=== PATIENT | male | born 1980 | race Caucasian/White ===

== ENCOUNTER 2018-02-26 16:53 | Emergency (ER) | payer OTHER ==
[~2018-02-26] VITALS: Ht 170.2 cm; Wt 68.0 kg
[~2018-02-26 16:53] MED LIST: FLEXERIL10 MG PO; MEDROL DOSEPAK1 PAC PO; MOTRIN 800MG T800 MG PO; PERCOCET 325 MG1 TA2 PO
[2018-02-26 17:59] LABS: ABSOLUTE BASOPHIL COUNT 0 /CUMM (0.0-0.2); ABSOLUTE EOSINOPHIL COUNT 0 /CUMM (0.0-0.7); ABSOLUTE GRANULOCYTE CT 5.5 /CUMM (1.4-6.5); ABSOLUTE LYMPH COUNT 1.6 /CUMM (1.2-3.4); ABSOLUTE MONOCYTE COUNT 0.4 /CUMM (0.10-0.60); BASOPHIL % 0.6 % (0.0-2.0); EOSINOPHIL % 0.5 % (0-5); GRANULOCYTE % 73.1 % (42.2-75.2); MEAN CORPUSCULAR HGB 30.5 PG (27.0-31.0); MEAN CORPUSCULAR VOLUME 89.7 FL (80.0-94.0); MEAN PLATELET VOLUME 7.9 FL (7.4-10.4); PLATELET COUNT 256 /CUMM (130-400); RBC DISTRIBUTION WIDTH 12.1 % (11.5-14.5); RED BLOOD CELL CT 5.69 /CUMM (4.70-6.10); WHITE BLOOD CELL COUNT 7.5 /CUMM (4.8-10.8)
[2018-02-26 20:40] VITALS: BP 120/69
--- NOTE | 2018-02-26 21:33 | ED GENERAL ADULT ---
History of Present Illness General Chief Complaint: General Adult Stated Complaint: SIB [facility] FOR EPIGASTRIC PAIN Source: patient, old records Exam Limitations: no limitations Vital Signs & Intake/Output Vital Signs & Intake/Output Vital Signs Date Time Temp Pulse Resp B/P B/P Pulse O2 O2 Flow FiO2 Mean Ox Delivery Rate 02/260 Room Air 02/27 2040 98.7 92 20 120/69 100 Room Air 02/26 1709 97.9 108 20 149/127 100 Room Air ED Intake and Output 02/27 0000 02/26 1200 Intake Total Output Total Balance Patient 150 lb Weight Weight Reported by Patient Measurement Method Allergies Coded Allergies: NO KNOWN ALLERGIES (11/19/13) Reconcile Medications CYCLOBENZAPRINE HCL (Flexeril) 10 MG TABLET 10 MG PO TID PRN SPASM Methylprednisolone. (Medrol) 4 MG TAB.DS.PK 10 MG PO DAILY INFLAMMATION USE DIRECTED OXYCODONE HCL/ACETAMINOPHEN (Percocet 5-325 MG Tablet) 325 MG/5 MG TAB 1-2 TAB PO Q4-6 PRN PRN PAIN Yibuprofen (Motrin 800MG Tab) 800 MG TABLET 800 MG PO TID PAIN Triage Note: PT SENT IN FROM [facility] FOR EPIGASTRIC PAIN. PT REPORTS HE GOT A HITA SCAN TODAY FOR HIS GALLBLADDER D/T PAIN WITH EATING. PT REPORTS A 25LB WEIGHT LOSS SINCE APPROX NOVEMBER. PT ARRIVED WITH IV IN RIGHT FOREARM FROM [facility]. PT REPORTS HE IS A HARD STICK AND HAS COMPLEX REGIONAL PAIN. LEFT ARM IS RESTRICTED. Triage Nurses Notes Reviewed? yes HPI: 37-year-old male presents from [facility] with nonvisualization of gallbladder on HIDA scan. 4 months of epigastric abdominal pain with 25 pounds of weight loss over the time. Undergone multiple ultrasounds which did not demonstrate a gallbladder. Patient is able to eat however consists of chicken and rice and not able to hold anything else down. He feels that up at this point and would like to have his gallbladder taken out if there are no other options. Denies fever, chills, diarrhea, constipation. Denies chest pain or shortness of breath. Past History Travel History Traveled to [place] past 21 day No Medical History Any Pertinent Medical History? see below for history Neurological: NONE, LYMES DISEASE COMPLEX REGIONAL PAIN SYN EENT: NONE Gastrointestinal: INTERSITTIAL CYSTITIS Renal: ENLARGED PROSTATE Psychiatric: anxiety, depression Surgical History Surgical History: non-contributory Psychosocial History What is your primary language [place] Tobacco Use: Never used ETOH Use: denies use Illicit Drug Use: marijuana Family History Hx Contributory? No Review of Systems Review of Systems Constitutional: Reports: no symptoms, see HPI. EENTM: Reports: no symptoms. Respiratory: Reports: no symptoms. Cardiovascular: Reports: no symptoms. GI: Reports: no symptoms. Genitourinary: Reports: no symptoms. Musculoskeletal: Reports: no symptoms. Skin: Reports: no symptoms. Neurological/Psychological: Reports: no symptoms. Hematologic/Endocrine: Reports: no symptoms. Immunologic/Allergic: Reports: no symptoms. All Other Systems: Reviewed and Negative Physical Exam Physical Exam General Appearance: no apparent distress, comfortable Comments: Gen.: Well-nourished, well-developed, no acute respiratory distress. Head: Normocephalic, atraumatic. Eyes: Normal inspection bilaterally Ears: Normal inspection bilaterally Nose: Normal inspection Throat/mouth : Moist mucosa Neck: Supple, full range of motion, no goiter Heart: Regular rate and rhythm, no murmurs rubs or gallops Lungs: Clear to auscultation bilaterally with normal air entry Chest: Nontender Back: Normal range of motion Abdomen: Soft, right upper quadrant tenderness upon palpation, negative for rebound or guarding Extremities: Normal range of motion grossly, equal radial pulses, no cyanosis clubbing or edema Neurologic: Cranial nerves grossly intact, speech is clear Skin: warm and dry Psychiatric: Calm, cooperative, no apparent delusions or hallucinations Core Measures ACS in differential dx? No CVA/TIA Diagnosis: No Sepsis Present: No Sepsis Focused Exam Completed? No Progress Differential Diagnoses I considered the following diagnoses in my evaluation of the patient: Appendicitis-the patient did not have migration of the pain to the right lower quadrant, tenderness over McBurney's point, Rovsing sign, white cell blood count was not elevated, and the diagnostic imaging studies did not confirm this Peritonitis-the patient had no rebound or guarding, did not have a rigid abdomen , the white blood cell count was not elevated and There was no inflammatory process on diagnostic imaging studies. Cholecystitis-the patient had no Simmons's sign on exam, white blood cell count was normal, and diagnostic imaging studies showed no inflammatory changes in the region of the gallbladder Pancreatitis-the lipase was normal, patient had no history of alcohol abuse or hypertriglyceridemia, but the diagnostic imaging studies did not show inflammation or edema in the area of the pancreas GI bleed-patient had no history of prior GI bleed, patient denied consistent use of NSAIDs, the patient is not taking anticoagulants such as Coumadin, the patient denied melena. AAA-the patient has a paucity of significant risk factors for vascular disease, there is no pulsatile abdominal mass, lower extremity pulses were equal Hernia-there were no apparent hernias on physical examination, the patient denied any unusual bulges or masses Ischemic bowel-the patient has a paucity of risk factors for vascular disease or thrombosis, physical examination did not reveal pain out of proportion to physical exam findings, diagnostic imaging studies were inconsistent with bowel ischemia Bowel obstruction-patient's abdomen was not significantly distended or hypertympanitic, patient had good bowel sounds, patient was having bowel movements and passing flatus. Plan of Care: Orders Procedure Date/time Status Add-on Test (ER Only) 02/26 2005 Active C-REACTIVE PROTEIN 02/27 1724 Complete TROPONIN LEVEL 02/27 1712 Complete LIPASE 02/27 1712 Complete COMPREHENSIVE METABOLIC PANEL 02/27 1712 Complete CBC WITHOUT DIFFERENTIAL 02/27 1712 Complete EKG 02/27 1712 Active Laboratory Tests 02/26/181723: Anion Gap 13, Estimated GFR > 60, BUN/Creatinine Ratio 11.0, Glucose 87, Calcium 10.2, Total Bilirubin 0.9, AST 23, ALT 28, Alkaline Phosphatase 78, Troponin I < 0.01, C-Reactive Prot, Quant 0.5, Total Protein 7.9, Albumin 4.6, Globulin 3.3, Albumin/Globulin Ratio 1.4, Lipase 94, CBC w Diff NO MAN DIFF REQ, RBC 5.69, MCV 89.7, MCH 30.5, MCHC 34.0, RDW 12.1, MPV 7.9, Gran % 73.1, Lymphocytes % 21.0, Monocytes % 4.8, Eosinophils % 0.5, Basophils % 0.6, Absolute Granulocytes 5.5, Absolute Lymphocytes 1.6, Absolute Monocytes 0.4, Absolute Eosinophils 0, Absolute Basophils 0 02/26/181711: Urine Color Cancelled, Urine Clarity Cancelled, Urine pH Cancelled, Ur Specific [place] Cancelled, Urine Protein Cancelled, Urine Ketones Cancelled, Urine Nitrite Cancelled, Urine Bilirubin Cancelled, Urine Urobilinogen Cancelled, Ur Leukocyte Esterase Cancelled, Ur Microscopic Cancelled, Urine Hemoglobin Cancelled, Urine Glucose Cancelled Initial ED EKG: none Comments: Spoke with gastroenterology regarding HIDA scan results. Gastroneurology once surgery to be consulted. Surgery consulted. Outpatient follow-up this week with Dr. Solis. Departure Departure Disposition: HOME OR SELF CARE Condition: Stable Clinical Impression Primary Impression: RUQ abdominal pain Secondary Impressions: Nausea & vomiting Qualifiers: Vomiting type: unspecified Vomiting Intractability: non-intractable Qualified Code: R11.2 - Nausea with vomiting, unspecified Weight loss Referrals: Will LAMAR,Chong Fall DO (PCP/Family) Additional Instructions: Follow-up with general surgery, Dr. Solis this week. Departure Forms: Customer Survey General Discharge Information Comments Please note that there might be incidental findings in your evaluation that are unrelated to the current emergency department visit. Please notify your primary care doctor about this emergency department visit in order to obtain and review all of the testing performed so that these incidental findings can be monitored as needed. If you had an x-ray performed, please understand that some fractures may not be seen on the initial set of x-rays. If your symptoms persist you might need a repeat set of x-rays to check for such a fracture. If you had a laceration evaluated, please understand that foreign bodies such as glass or wood may not be visible to the naked eye or on plain x-rays. If the wound becomes red, swollen, increasingly more painful or if there is any drainage from the wound, please have it reevaluated by a physician for the possibility of a retained foreign body. If you're unable to follow up as outlined in the discharge instructions please return to the emergency department. Critical Care Note Critical Care Note Critical Care Time: non-applicable
== END 2018-02-26 22:01 ==
LOC: ERH 16:53
PROVIDERS: Physician Assistant Medical
DX: R10.11 Right upper quadrant pain (principal); R11.2 Nausea with vomiting, unspecified; R63.4 Abnormal weight loss; A69.20 Lyme disease, unspecified; F41.9 Anxiety disorder, unspecified; F32.9 Major depressive disorder, single episode, unspecified; F12.10 Cannabis abuse, uncomplicated
CPT/HCPCS: 93005; 93010